=== PATIENT | male | born 1995 | race Caucasian/White ===

== ENCOUNTER → 2020-10-30 | Outpatient (REF) | payer OTHER, BC ==
[2020-10-31 10:15] LABS: APPEARANCE, URINE CLEAR (CLEAR); BACTERIA, URINE AUTO NEGATIVE (NEGATIVE); BILIRUBIN, URINE AUTO NEGATIVE (NEGATIVE); BLOOD, URINE BLOOD 1+ (NEGATIVE); COLOR, URINE STRAW (YELLOW); GLUCOSE, URINE (UA) AUTO NEGATIVE (NEGATIVE); KETONE, URINE AUTO NEGATIVE (NEGATIVE); LEUKOCYTE ESTERASE, URINE AUTO NEGATIVE (NEGATIVE); NITRITE, URINE AUTO NEGATIVE (NEGATIVE); PROTEIN, URINE AUTO NEGATIVE (NEGATIVE); RBC, URINE AUTO 1 /HPF (0-3); SPECIFIC GRAVITY URINE AUTO 1.006 (1.002-1.035); SQUAMOUS EPITHELIAL CELL UR AU 0 /HPF (0-6); UROBILINOGEN, URINE AUTO 0.2 mg/dL (0.0-2.0); WBC, URINE AUTO 0 /HPF (0-3)
[2020-10-31 12:18] LABS: GC DNA AMPLIFICATION NEGATIVE (NEGATIVE)
== END ==
LOC: M SMT 10:03
PROVIDERS: ATTEND Nurse Practitioner Family
DX: N50.819 Testicular pain, unspecified (principal)

== ENCOUNTER → 2020-12-17 | Outpatient (CLI) | payer OTHER ==
--- NOTE | 2020-12-17 19:43 | REP ---
INDICATION: TESTIS PAIN. COMPARISON: None. TECHNIQUE: High-resolution bilateral scrotal sonography. FINDINGS: High-resolution bilateral scrotal sonography shows no evidence of intratesticular mass on either side. Testicular Doppler flow is observed bilaterally and to a felt to be normal. Resistive indices are 0.69 on the right and 0.43 on the left. There are small bilateral there are 3 small cysts in the right epididymis. Hydroceles noted incidentally. IMPRESSION: Unremarkable bilateral scrotal sonography. No significant abnormality. <Electronically signed by Nasim Gaston > 12/17/201939
== END ==
LOC: M RAD 11:44
PROVIDERS: ATTEND Nurse Practitioner Family
DX: N50.3 Cyst of epididymis (principal); N43.3 Hydrocele, unspecified; N50.819 Testicular pain, unspecified